=== PATIENT | female | born 1980 | race Caucasian/White ===

== ENCOUNTER 2021-07-06 06:46 | Day surgery (SDC) | payer BC ==
[~2021-07-06 06:46] MED LIST: Lactated Ringers 1,000 ML IV SCH
[2021-07-06] MEDS ORDERED: Naloxone 0.4 MG/ML SDV IVPUSH PRN (07:20)
[2021-07-06] MEDS ORDERED: Albuterol 0.083% 2.5 MG/3 ML Neb Soln NEB PRN (07:20)
[2021-07-06] MEDS ORDERED: fentaNYL 100 MCG/2 ML SDV IVPUSH PRN (07:20)
[2021-07-06] MEDS ORDERED: Ondansetron 4 MG/2 ML SDV IVPUSH PRN (07:20)
[2021-07-06] MEDS ORDERED: Metoclopramide 10 MG/2 ML SDV IVPUSH PRN (07:20)
[2021-07-06] MEDS ORDERED: HYDROmorphone 1 MG/ML Syringe IVPUSH PRN (07:20)
[2021-07-06] MEDS ORDERED: Propofol 200 MG/20 ML SDV ONE (07:23)
[2021-07-06] MEDS ORDERED: Lidocaine 1% 5 ML VIAL ONE (07:23)
[2021-07-06] MEDS ORDERED: Midazolam 1 MG/ML 2 ML SDV ONE (07:23)
[2021-07-06] MEDS ORDERED: Dexamethasone 4 MG/ML 5 ML MDV ONE (07:23)
[2021-07-06] MEDS ORDERED: Dexmedetomidine 200 MCG/2 ML SDV ONE (07:23)
[2021-07-06] MEDS ORDERED: fentaNYL 100 MCG/2 ML SDV ONE (07:23)
[2021-07-06] MEDS ORDERED: Water For Injection, Sterile 20 ML ONE (07:24)
[2021-07-06] MEDS ORDERED: ePHEDrine 50 MG/ML SDV ONE (08:15)
== END 2021-07-06 10:55 | disposition home or self-care (01) ==
LOC: MW.SDS 06:46
PROVIDERS: ATTEND Obstetrics & Gynecology
DX: N84.0 Polyp of corpus uteri (principal); E05.90 Thyrotoxicosis, unspecified without thyrotoxic crisis or storm; Z98.890 Other specified postprocedural states; Z91.040 Latex allergy status
CPT/HCPCS: 36415; 58558; 84703; 85027; J1100; J2250; J2704; J3010; J7120; 00952